=== PATIENT | female | born 1985 | race Caucasian/White ===

== ENCOUNTER → 2018-03-17 | Outpatient (REF) | payer OTHER ==
[2018-03-17 13:53] LABS: HEMATOCRIT 36.9 % (36.0-47.0); HEMOGLOBIN 12.5 g/dl (12.0-15.5); MEAN CORPUSCULAR HEMOGLOBIN 30.6 pg (27.0-33.0); MEAN CORPUSCULAR HGB CONC 33.9 g/dl (32.0-36.5); MEAN CORPUSCULAR VOLUME 90.4 fl (80.0-96.0); PLATELET COUNT, AUTOMATED 186 10^3/uL (150-450); RED BLOOD COUNT 4.08 10^6/uL (4.00-5.40); RED CELL DISTRIBUTION WIDTH 13.4 % (11.5-14.5); WHITE BLOOD COUNT 6.9 10^3/uL (4.0-10.0)
[2018-03-17 14:07] LABS: HCG, SERUM QUANTITATIVE 37146 MIU/ML
[2018-03-18 10:25] LABS: RUBELLA IgG QUALITATIVE IMMUNE (IMMUNE)
[2018-03-18 10:35] LABS: HBsAg Prenatal NEGATIVE (NEGATIVE)
[2018-03-18 10:56] LABS: HIV 1&2 SCREEN CENTAUR NEGATIVE (NEGATIVE)
[2018-03-18 10:56] LABS: HEPATITIS C VIRUS ABY INDEX 0.1 INDEX (<0.8)
== END ==
LOC: M LAB REF 12:57
DX: O36.80X0 Pregnancy with inconclusive fetal viability, not applicable or unspecified (principal)

== ENCOUNTER → 2019-01-24 | Outpatient (REF) | payer OTHER | LOC: M LAB REF 14:11 | PROVIDERS: ATTEND Physician Assistant | DX: R30.0 Dysuria (principal) ==

== ENCOUNTER → 2019-06-25 | Outpatient (CLI) | payer OTHER ==
[2019-06-28 11:34] LABS: HEPATITIS B CORE ANTIBODY IGM NEGATIVE (NEGATIVE); HEPATITIS B SURFACE ANTIBODY POSITIVE (POSITIVE); HEPATITIS B SURFACE ANTIGEN NEGATIVE (NEGATIVE); RUBELLA IgG QUALITATIVE IMMUNE (IMMUNE)
[2019-06-30 16:25] LABS: HERPES ZOSTER, VARICELLA IgG 836 index (Immune >165); HERPES ZOSTER, VARICELLA IgM 1.01 index (0.00-0.90); MUMPS VIRUS IgG ANTIBODY <9.0 AU/mL (Immune >10.9); POLIO ANTIBODIES/POLIOMYELITIS 1:16 (Neg:<1:8); RUBEOLA IgG ANTIBODY 93.2 AU/mL (Immune >16.4)
== END ==
LOC: M LAB 14:52
PROVIDERS: ATTEND Family Medicine
DX: Z01.84 Encounter for antibody response examination (principal)